=== PATIENT | male | born 1980 | race Caucasian/White ===

== ENCOUNTER 2021-11-24 13:14 | Day surgery (SDC) | payer OTHER ==
[2021-11-24] MEDS ORDERED: LIDOCAINE HCL 2% 40 MG/2 ML IJ ONE (13:15)
[2021-11-24] MEDS ORDERED: Depo-Medrol 40 MG/ML IM ONE (13:15)
[2021-11-24] MEDS ORDERED: DIPRIVAN 200 MG/20 ML IV ONE (14:48)
[2021-11-24] MEDS ORDERED: Lactated Ringers 1,000 ML IV ONE (15:09)
--- NOTE | 2021-11-24 16:16 | XRAY ---
Indication: Bilateral L4-S1 MBB. Intraoperative fluoroscopy provided for 14 seconds. Single digital spot image submitted for interpretation demonstrates posterior needle tips projecting over the expected left and right L4-S1 nerve roots. Correlate with intraoperative findings/report.
--- NOTE | 2021-11-24 17:35 | XRAY ---
14 seconds of fluoroscopy was used in surgery for bilateral L4-S1 MBB.
== END 2021-11-24 15:15 | disposition home or self-care (01) ==
LOC: SDC-PAIN 13:14
PROVIDERS: ATTEND Psychiatry & Neurology Pain Medicine
DX: M47.816 Spondylosis without myelopathy or radiculopathy, lumbar region (principal); Z79.899 Other long term (current) drug therapy
CPT/HCPCS: 64493; 64494; 72020; 77002; J1030; J2704

== ENCOUNTER 2021-12-22 11:58 | Day surgery (SDC) | payer OTHER ==
[2021-12-22] MEDS ORDERED: Marcaine Mpf 0.5% Vial 30 Ml IJ ONE (11:59)
[2021-12-22] MEDS ORDERED: Pepcid 20 MG VIAL IV ONE (13:09)
[2021-12-22] MEDS ORDERED: Zofran 4 MG/2 ML VIAL ONE (13:09)
[2021-12-22] MEDS ORDERED: BENADRYL 50 MG/ML ONE (13:10)
[2021-12-22] MEDS ORDERED: DIPRIVAN 200 MG/20 ML IV ONE (14:18)
[2021-12-22] MEDS ORDERED: Lactated Ringers 1,000 ML IV ONE (14:52)
--- NOTE | 2021-12-22 14:52 | XRAY ---
Indication: Bilateral L4-S1 MBB. Intraoperative fluoroscopy provided for 6 seconds. Single digital spot image submitted for interpretation demonstrates posterior needle tips projecting over the left and right L4-S1 nerve roots. Correlate with intraoperative findings/report.
--- NOTE | 2021-12-22 14:55 | XRAY ---
6 seconds of fluoroscopy was used in surgery for a bilateral L4-S1 MBB.
== END 2021-12-22 14:28 | disposition home or self-care (01) ==
LOC: SDC-PAIN 11:58
PROVIDERS: ATTEND Psychiatry & Neurology Pain Medicine
DX: M47.816 Spondylosis without myelopathy or radiculopathy, lumbar region (principal); Z79.899 Other long term (current) drug therapy
CPT/HCPCS: 64493; 64494; 72020; 77002; J1200; J2405; J2704

== ENCOUNTER 2022-01-05 09:05 | Day surgery (SDC) | payer OTHER ==
[2022-01-05] MEDS ORDERED: Depo-Medrol 40 MG/ML IM ONE (09:06)
[2022-01-05] MEDS ORDERED: Marcaine Mpf 0.5% Vial 30 Ml IJ ONE (09:06)
[2022-01-05] MEDS ORDERED: XYLOCAINE-MPF 1% 5ML SDV IJ ONE (09:06)
[2022-01-05] MEDS ORDERED: Transderm Scop 1.5MG Patch ONE (09:28)
[2022-01-05] MEDS ORDERED: BENADRYL 50 MG/ML ONE (09:28)
[2022-01-05] MEDS ORDERED: Pepcid 20 MG VIAL IV ONE (09:28)
[2022-01-05] MEDS ORDERED: Zofran 4 MG/2 ML VIAL ONE (09:28)
[2022-01-05] MEDS ORDERED: Lactated Ringers 1,000 ML IV ONE (10:29)
[2022-01-05] MEDS ORDERED: DIPRIVAN 200 MG/20 ML IV ONE (10:54)
--- NOTE | 2022-01-05 12:50 | XRAY ---
Indication: Right L4-S1 RFA. Intraoperative fluoroscopy provided for 18 seconds. 3 digital spot image submitted for interpretation demonstrate posterior needle tips projecting over the expected right L4-S1 nerve roots. Correlate with intraoperative findings/report.
--- NOTE | 2022-01-05 14:47 | XRAY ---
18 seconds fluoroscopy time in surgery for right L4-S1 RFA.
== END 2022-01-05 11:23 | disposition home or self-care (01) ==
LOC: SDC-PAIN 09:05
PROVIDERS: ATTEND Psychiatry & Neurology Pain Medicine
DX: M47.816 Spondylosis without myelopathy or radiculopathy, lumbar region (principal); Z79.899 Other long term (current) drug therapy
CPT/HCPCS: 64635; 64636; 72100; 77002; J1030; J1200; J2405; J2704; A9270-GY

== ENCOUNTER 2022-01-12 15:28 | Day surgery (SDC) | payer OTHER ==
[2022-01-12] MEDS ORDERED: Depo-Medrol 40 MG/ML IM ONE (15:29)
[2022-01-12] MEDS ORDERED: Marcaine Mpf 0.5% Vial 30 Ml IJ ONE (15:29)
[2022-01-12] MEDS ORDERED: XYLOCAINE-MPF 1% 5ML SDV IJ ONE (15:29)
[2022-01-12] MEDS ORDERED: Pepcid 20 MG VIAL IV ONE (16:05)
[2022-01-12] MEDS ORDERED: BENADRYL 50 MG/ML ONE (16:05)
[2022-01-12] MEDS ORDERED: Transderm Scop 1.5MG Patch ONE (16:05)
[2022-01-12] MEDS ORDERED: Zofran 4 MG/2 ML VIAL ONE ×2 (16:05→17:40)
[2022-01-12] MEDS ORDERED: Lactated Ringers 1,000 ML IV ONE (16:45)
[2022-01-12] MEDS ORDERED: DIPRIVAN 200 MG/20 ML IV ONE (17:40)
[2022-01-12] MEDS ORDERED: Decadron 4 MG INJ ONE (17:40)
--- NOTE | 2022-01-12 20:13 | XRAY ---
Indication: Left L4-S1 RFA. Intraoperative fluoroscopy provided for 23 seconds. 3 digital spot images submitted for interpretation demonstrates posterior needle tips projecting over the left L4-S1 nerve roots. Correlate with intraoperative findings/report.
--- NOTE | 2022-01-13 09:44 | XRAY ---
23 seconds of fluoroscopy was used in surgery for a left L4-S1 RFA.
== END 2022-01-12 18:11 | disposition home or self-care (01) ==
LOC: SDC-PAIN 15:28
PROVIDERS: ATTEND Psychiatry & Neurology Pain Medicine
DX: M47.816 Spondylosis without myelopathy or radiculopathy, lumbar region (principal); Z79.899 Other long term (current) drug therapy
CPT/HCPCS: 64635; 64636; 72100; 77002; J1030; J1100; J1200; J2405; J2704; A9270-GY

== ENCOUNTER 2022-02-09 10:51 | Day surgery (SDC) | payer OTHER ==
[2022-02-09] MEDS ORDERED: Depo-Medrol 40 MG/ML IM ONE (10:52)
[2022-02-09] MEDS ORDERED: Sensorcaine 0.25% 10 ML IJ ONE (10:52)
[2022-02-09] MEDS ORDERED: BENADRYL 50 MG/ML ONE (11:30)
[2022-02-09] MEDS ORDERED: Transderm Scop 1.5MG Patch ONE (11:30)
[2022-02-09] MEDS ORDERED: Reglan 10 MG/2 ML ONE (11:30)
[2022-02-09] MEDS ORDERED: DIPRIVAN 200 MG/20 ML IV ONE (12:11)
[2022-02-09] MEDS ORDERED: Lactated Ringers 1,000 ML IV ONE (13:07)
--- NOTE | 2022-02-09 17:29 | XRAY ---
Indication: Bilateral SI joint injection. Intraoperative fluoroscopy provided for 17 seconds. 4 digital spot image submitted for interpretation demonstrates posterior needle tip projecting over the left and right SI joints. Correlate with intraoperative findings/report.
--- NOTE | 2022-02-09 17:45 | XRAY ---
17 seconds fluoroscopy time in surgery for injections of both SI joints.
== END 2022-02-09 12:33 | disposition home or self-care (01) ==
LOC: SDC-PAIN 10:51
PROVIDERS: ATTEND Psychiatry & Neurology Pain Medicine
DX: M46.1 Sacroiliitis, not elsewhere classified (principal); Z79.899 Other long term (current) drug therapy
CPT/HCPCS: 27096; 72202; 77002; G0260; J1030; J1200; J2704; A9270-GY

== ENCOUNTER 2022-03-09 10:47 | Day surgery (SDC) | payer OTHER ==
[2022-03-09] MEDS ORDERED: Depo-Medrol 40 MG/ML IM ONE (10:48)
[2022-03-09] MEDS ORDERED: Marcaine Mpf 0.5% Vial 30 Ml IJ ONE (10:48)
[2022-03-09] MEDS ORDERED: BENADRYL 50 MG/ML ONE (11:25)
[2022-03-09] MEDS ORDERED: Pepcid 20 MG VIAL IV ONE (11:25)
[2022-03-09] MEDS ORDERED: Zofran 4 MG/2 ML VIAL ONE (11:25)
[2022-03-09] MEDS ORDERED: Transderm Scop 1.5MG Patch ONE (11:25)
[2022-03-09] MEDS ORDERED: Reglan 10 MG/2 ML ONE (11:25)
[2022-03-09] MEDS ORDERED: Lactated Ringers 1,000 ML IV ONE (13:14)
[2022-03-09] MEDS ORDERED: DIPRIVAN 200 MG/20 ML IV ONE (13:40)
--- NOTE | 2022-03-09 17:18 | XRAY ---
Indication: Right hip injection. Intraoperative fluoroscopy provided for 17 seconds. Single digital spot image submitted for interpretation demonstrates needle tip lateral to the right femur neck. Small amount of contrast injected for needle tip placement. Correlate with intraoperative findings/report.
--- NOTE | 2022-03-09 17:20 | XRAY ---
17 seconds fluoroscopy time in surgery for intra-articular injection of the right hip.
== END 2022-03-09 14:10 | disposition home or self-care (01) ==
LOC: SDC-PAIN 10:47
PROVIDERS: ATTEND Psychiatry & Neurology Pain Medicine
DX: M16.11 Unilateral primary osteoarthritis, right hip (principal); Z79.899 Other long term (current) drug therapy
CPT/HCPCS: 20610; 73501; 77002; 77003; J1030; J1200; J2405; J2704; Q9966; A9270-GY

== ENCOUNTER 2022-05-25 12:22 | Day surgery (SDC) | payer OTHER ==
[2022-05-25] MEDS ORDERED: Depo-Medrol 40 MG/ML IM ONE (12:23)
[2022-05-25] MEDS ORDERED: Sodium Chloride 0.9(Preservative Free) 10 ML IJ ONE (12:23)
[2022-05-25] MEDS ORDERED: Transderm Scop 1.5MG Patch ONE (13:46)
[2022-05-25] MEDS ORDERED: Versed 2 MG/2 ML Injection ONE (13:46)
[2022-05-25] MEDS ORDERED: Zofran 4 MG/2 ML VIAL ONE (13:46)
[2022-05-25] MEDS ORDERED: Reglan 10 MG/2 ML ONE (13:46)
[2022-05-25] MEDS ORDERED: BENADRYL 50 MG/ML ONE (13:46)
[2022-05-25] MEDS ORDERED: DIPRIVAN 200 MG/20 ML IV ONE (15:12)
[2022-05-25] MEDS ORDERED: Lactated Ringers 1,000 ML IV ONE (16:34)
--- NOTE | 2022-05-25 16:58 | XRAY ---
Indication: Right L4-S1 transforaminal MELANIA. Intraoperative fluoroscopy provided for 30 seconds. 4 digital spot images submitted for interpretation demonstrates posterior needle tips projecting over the expected right L4 and L5 nerve roots. Small amount of contrast injected for needle tip placement. Correlate with intraoperative findings/report.
--- NOTE | 2022-05-25 20:24 | XRAY ---
30 seconds of fluoroscopy was used in surgery for a right L4-S1 transforaminal MELANIA.
== END 2022-05-25 15:50 | disposition home or self-care (01) ==
LOC: SDC-PAIN 12:22
PROVIDERS: ATTEND Psychiatry & Neurology Pain Medicine
DX: M54.16 Radiculopathy, lumbar region (principal); Z79.899 Other long term (current) drug therapy
CPT/HCPCS: 64483; 64484; 72100; 77003; J1030; J1200; J2250; J2405; J2704; Q9966; A9270-GY

== ENCOUNTER 2022-08-10 11:01 | Day surgery (SDC) | payer OTHER ==
[2022-08-10] MEDS ORDERED: Depo-Medrol 40 MG/ML IM ONE (11:02)
[2022-08-10] MEDS ORDERED: Sodium Chloride 0.9(Preservative Free) 10 ML IJ ONE (11:02)
[2022-08-10] MEDS ORDERED: Transderm Scop 1.5MG Patch ONE (11:48)
[2022-08-10] MEDS ORDERED: Zofran 4 MG/2 ML VIAL ONE (11:48)
[2022-08-10] MEDS ORDERED: Reglan 10 MG/2 ML ONE (11:48)
[2022-08-10] MEDS ORDERED: BENADRYL 50 MG/ML ONE (11:49)
[2022-08-10] MEDS ORDERED: DIPRIVAN 200 MG/20 ML IV ONE ×2 (12:37→12:45)
--- NOTE | 2022-08-10 13:56 | XRAY ---
24 seconds fluoroscopy time in surgery for right L3-L5 transforaminal MELANIA.
--- NOTE | 2022-08-10 13:57 | XRAY ---
Indication: Right L3-L5 transforaminal MELANIA. Intraoperative fluoroscopy provided for 24 seconds. 3 digital spot images submitted for interpretation demonstrate posterior needle tips projecting over the expected right L3 and L4 nerve roots. Small amount of contrast injected for needle tip placement. Correlate with intraoperative findings/report.
[2022-08-10] MEDS ORDERED: Lactated Ringers 1,000 ML IV ONE (14:05)
== END 2022-08-10 13:10 | disposition home or self-care (01) ==
LOC: SDC-PAIN 11:01
PROVIDERS: ATTEND Psychiatry & Neurology Pain Medicine
DX: M54.16 Radiculopathy, lumbar region (principal); Z79.899 Other long term (current) drug therapy
CPT/HCPCS: 64483; 64484; 72100; 77003; J1030; J1200; J2405; J2704; Q9966; A9270-GY